=== PATIENT | male | born 1985 ===

== ENCOUNTER → 2024-11-26 08:12 | Outpatient (CLI) | payer OTHER ==
[2024-11-26 09:03] LABS: PH,URINE 5.5 (5.0-8.0); URINE APPEARANCE Clear; URINE BILIRRUBIN Negative (NEGATIVE); URINE BLOOD Negative; URINE COLOR Yellow; URINE GLUCOSE Negative (NEGATIVE); URINE KETONE Negative (NEGATIVE); URINE LEUKOCYTE Negative; URINE NITRATE Negative; URINE PROTEIN Negative (NEGATIVE); URINE UROBILINOGEN 0.2 E.U./dl
[2024-11-26 09:07] LABS: URINE BACTERIA 7.3 uL (0.0-1933)
[2024-11-26 09:17] LABS: ERYTHROCYTE SEDIMENTATION RATE 15 mm/hr
[2024-11-26 09:55] LABS: HEMATOCRIT 46.8 % (39.0-48.0); HEMOGLOBIN 15.9 g/dL (13-16.00); MEAN CORPUSCULAR HEMOGLOBIN 30.3 pg (27.00-32.0); PLATELET COUNT 280 K/uL (150-450); RED BLOOD COUNT 5.26 M/uL (4.00-6.00); RED CELL DISTRIBUTION WIDTH 13.6 % (11.5-14.5)
[2024-11-26 10:00] LABS: URINE EPITHELIAL CELLS 0.3 uL (0.0-38.8); URINE RBC 0.4 uL (0.0-20.8); URINE WBC 0.3 uL (0.0-23.2)
[2024-11-26 10:19] LABS: ALBUMIN 4.3 gm/dL (3.4-5.0); BILIRUBIN TOTAL 0.65 mg/dL (0.3-1.2); CALCIUM 9.8 mg/dL (8.5-10.1); CHOL HDL RATIO 4.2 (0-5.0); CREATININE SERUM 0.83 mg/dL (0.70-1.30); GFR 102.61; GLOBULINA 3.8 G/DL (2.4-3.5); POTASSIUM 3.84 mEq/L (3.5-5.1); PROSTATIC SPECIFIC ANTIGEN 1.04 NG/ML (0.010-4.00); T4 FREE 1.16 NG/ML (0.76-1.46); TOTAL PROTEIN 8.1 gm/dL (6.4-8.2); TSH 2.41 uIU/mL (0.358-3.74)
[2024-11-26 10:23] LABS: URIC ACID 5.4 mg/dL (3.5-8.5)
[2024-11-28 16:07] LABS: dRVVT 36.5 sec (0.0-47.0); interp Comment: (.); ptt-la 37.7 sec (0.0-43.5)
== END | disposition home or self-care (01) ==
LOC: LAB 08:12
DX: D64.9 Anemia, unspecified (principal); E88.89 Other specified metabolic disorders; E78.5 Hyperlipidemia, unspecified; E55.9 Vitamin D deficiency, unspecified; R30.0 Dysuria; E03.9 Hypothyroidism, unspecified; Z12.11 Encounter for screening for malignant neoplasm of colon; E11.69 Type 2 diabetes mellitus with other specified complication; Z12.5 Encounter for screening for malignant neoplasm of prostate; N18.9 Chronic kidney disease, unspecified